=== PATIENT | female | born 1965 | race Hispanic/Latino ===

== ENCOUNTER 2024-03-05 11:10 | Emergency (ER) | payer OTHER ==
[~2024-03-05 11:10] MED LIST: Iopamidol-370 76% 500 ML MDV (1 ML CHARGE) ONE
[2024-03-05 12:57] LABS: #Basophils Less than 0.03 10x3/uL (0.0-0.2); %Eosinophils 1.1 % (0.0-10.0); %Neutrophils 72.5 % (42.0-75.0); Hematocrit 28.9 % (36.0-47.0); Hemoglobin 9.6 g/dL (12.0-16.0); Mean Corpuscular HGB CONC 33.2 g/dL (32.0-36.0); Mean Corpuscular Hemoglobin 30.2 pg (27.0-31.0); Mean Corpuscular Volume 90.9 fL (78.0-98.0); Mean Platelet Volume 9.1 fL (7.4-10.4); Platelet Count 50 10x3/uL (130-400); RBC Distribution Width 19.4 % (11.5-14.5); Red Blood Cell (RBC) Count 3.18 mill/uL (4.20-5.40)
[2024-03-05] MEDS ORDERED: Ondansetron PF 4 MG/2 ML Vial ONE (13:11)
[2024-03-05 13:19] LABS: ALT (SGPT) 23 U/L (8-55); AST (SGOT) 27 U/L (5-34); Albumin 3.1 g/dL (3.5-5.0); Alkaline Phosphatase 132 U/L (40-110); Anion Gap 12 mmol/L (10-20); BUN (Urea Nitrogen) 10 mg/dL (9.8-20.1); Bilirubin, Total 1.4 mg/dL (0.2-1.2); Calc. Creatinine Clearance 0 mL/min (70-130); Calcium 7.9 mg/dL (7.8-10.44); Carbon Dioxide 23 mmol/L (22-29); Chloride 103 mmol/L (98-107); Estimated GFR 105; Globulin 4.3 g/dL (2.4-3.5); Glucose 85 mg/dL (70-105); Potassium 3.6 mmol/L (3.5-5.1); Protein, Total 7.4 g/dL (6.0-8.3); Sodium 134 mmol/L (136-145); Troponin I Less than 0.010 ng/mL (< 0.028)
[2024-03-05] MEDS ORDERED: HYDROcodone/Acetaminophen 5/325 mg Tablet ONE (13:32)
== END 2024-03-05 13:44 | disposition home or self-care (01) ==
LOC: ERS 11:10
DX: M79.604 Pain in right leg (principal); M79.605 Pain in left leg; D64.9 Anemia, unspecified; I10 Essential (primary) hypertension; Z79.899 Other long term (current) drug therapy; Z75.8 Other problems related to medical facilities and other health care; Z85.05 Personal history of malignant neoplasm of liver
CPT/HCPCS: 71275; 80053; 83880; 84484; 85025; 93005; 93970; 96374; J2405; Q9967

== ENCOUNTER 2024-05-08 10:09 | Day surgery (SDC) | payer OTHER ==
[2024-05-07 10:09] VITALS: BMI 29.4
[2024-05-08] MEDS ORDERED: Lidocaine 1% PF 5 ML VIAL ONE (11:42)
[2024-05-08] MEDS ORDERED: PROPOFOL 200 MG/20 ML VIAL ONE (11:42)
== END 2024-05-08 13:10 | disposition home or self-care (01) ==
LOC: SDC 10:09
PROVIDERS: ATTEND Internal Medicine Gastroenterology
PROC: 06L38CZ Occlusion of Esophageal Vein with Extraluminal Device, Via Natural or Artificial Opening Endoscopic (ICD-10-PCS; principal; 2024-05-08)
DX: I85.00 Esophageal varices without bleeding (principal); K44.9 Diaphragmatic hernia without obstruction or gangrene; C22.1 Intrahepatic bile duct carcinoma; E78.00 Pure hypercholesterolemia, unspecified; J45.909 Unspecified asthma, uncomplicated; G40.909 Epilepsy, unspecified, not intractable, without status epilepticus; Z87.59 Personal history of other complications of pregnancy, childbirth and the puerperium; Z85.09 Personal history of malignant neoplasm of other digestive organs; Z79.899 Other long term (current) drug therapy
CPT/HCPCS: J2704

== ENCOUNTER 2024-06-06 09:53 | Outpatient (CLI) | payer OTHER ==
[2024-06-06] MEDS ORDERED: Iopamidol 370 76% 100 ML VIAL ONE (15:00)
== END 2024-06-06 09:54 | disposition home or self-care (01) ==
LOC: BICCT 09:53
PROVIDERS: ATTEND Internal Medicine Hematology & Oncology
DX: C22.1 Intrahepatic bile duct carcinoma (principal); K76.6 Portal hypertension; K76.89 Other specified diseases of liver; R16.1 Splenomegaly, not elsewhere classified; I86.4 Gastric varices; C79.89 Secondary malignant neoplasm of other specified sites; R60.9 Edema, unspecified; K63.89 Other specified diseases of intestine
CPT/HCPCS: 71260; 74177; 80053; 82248; 83615; 84100; 84550; 86301; Q9967

== ENCOUNTER 2024-07-23 19:42 | Emergency (ER) | payer OTHER, SELFPAY ==
[2024-07-23 20:20] LABS: #Basophils Less than 0.03 10x3/uL (0.0-0.2); %Basophils 0.3 % (0.0-1.0); %Lymphocytes 17.9 % (21.0-51.0); %Monocytes 11.4 % (0.0-10.0); %Neutrophils 68.1 % (42.0-75.0); Hematocrit 34.1 % (36.0-47.0); Hemoglobin 11.8 g/dL (12.0-16.0); Mean Corpuscular HGB CONC 34.6 g/dL (32.0-36.0); Mean Corpuscular Hemoglobin 31.3 pg (27.0-31.0); Mean Corpuscular Volume 90.5 fL (78.0-98.0); Mean Platelet Volume 9.2 fL (7.4-10.4); Platelet Count 74 10x3/uL (130-400); RBC Distribution Width 16.4 % (11.5-14.5); Red Blood Cell (RBC) Count 3.77 mill/uL (4.20-5.40)
[2024-07-23 20:42] LABS: ALT (SGPT) 50 U/L (Less than 34); AST (SGOT) 64 U/L (11-34); Albumin 3.3 g/dL (3.1-4.5); Alkaline Phosphatase 466 U/L (40-110); Anion Gap 11 mmol/L (10-20); BUN (Urea Nitrogen) 8 mg/dL (9.8-20.1); Bilirubin, Total 2.7 mg/dL (0.3-1.2); Calc. Creatinine Clearance 0 mL/min (70-130); Calcium 8.4 mg/dL (7.8-10.44); Carbon Dioxide 25 mmol/L (22-29); Chloride 106 mmol/L (98-107); Estimated GFR 113; Globulin 4.5 g/dL (2.4-3.5); Glucose 89 mg/dL (70-105); Lipase 10 U/L (8-78); Potassium 4.1 mmol/L (3.5-5.1); Protein, Total 7.8 g/dL (6.0-8.3); Sodium 138 mmol/L (136-145)
[2024-07-23 22:18] LABS: Troponin I 0.011 ng/mL (< 0.028)
[2024-07-23] MEDS ORDERED: Morphine 4 MG/ML VIAL ONE (22:50)
[2024-07-23] MEDS ORDERED: Ondansetron PF 4 MG/2 ML Vial ONE (22:51)
== END 2024-07-23 23:34 | disposition home or self-care (01) ==
LOC: ERS 19:42
DX: K52.9 Noninfective gastroenteritis and colitis, unspecified (principal); I10 Essential (primary) hypertension
CPT/HCPCS: 36415; 74177; 80053; 83690; 84484; 85025; 96374; 96375; J2270; J2405; Q9967